=== PATIENT | female | born 2000 | race Caucasian/White ===

== ENCOUNTER 2021-05-26 07:54 | Day surgery (SDC) | payer OTHER ==
[2021-05-26] MEDS ORDERED: Lactated Ringers 1,000 ML IV SCH (08:30)
[2021-05-26] MEDS ORDERED: Xylocaine-Mpf 2% 5 Ml Vial ONE (09:27)
[2021-05-26] MEDS ORDERED: DIPRIVAN 200 MG/20 ML IV ONE ×4 (09:27→11:31)
[2021-05-26] MEDS ORDERED: Zofran 4 MG/2 ML VIAL ONE (09:27)
[2021-05-26] MEDS ORDERED: SUBLIMAZE 100 MCG/2 ML ONE (09:28)
[2021-05-26] MEDS ORDERED: XYLOCAINE 1%/Epi 1:100000 MDV 20 ML ONE (09:57)
[2021-05-26] MEDS ORDERED: XYLOCAINE 1% HCL 20 ML MDV ONE (09:57)
[2021-05-26] MEDS ORDERED: Versed 2 MG/2 ML Injection ONE (10:11)
[2021-05-26] MEDS ORDERED: Versed 2 MG/2 ML Injection IV ONE (10:16)
[2021-05-26 12:35] VITALS: BP 122/75; PULSE 88; O2SAT 95
--- NOTE | 2021-05-26 15:22 | OP ---
SURGERY DATE/TIME: 05/26/2021 1016 PREOPERATIVE DIAGNOSIS: Lipoma right mid posterior chest. POSTOPERATIVE DIAGNOSIS: Lipoma right mid posterior chest, see final path report. PROCEDURE: Excision of lipoma right mid posterior chest. SURGEON: Asa Pittman M.D. ANESTHESIA: Monitored anesthesia care - Mark Melara CRNA. ESTIMATED BLOOD LOSS: Less than 1 cc. INDICATIONS: This is a 20-year-old white female who came to see me at the request of Vielka Flores NP, because of a mass on the patient's right mid posterior chest which has been present for about a year from her initial consultation of 02/04/2021, which has increased in size and with pain especially with prolonged use of her upper extremities. The patient denies any history of trauma where the mass is located. Examination on her initial office visit revealed that the patient has an elevated subcutaneous tissue mass located in the right mid posterior chest just to the right of the midline, not attached to skin or to underlying structures and it is moveable and not tender to palpation. It measures 3 cm in diameter. Treatment plan was then discussed with the patient in the presence of her Roberto isabel which will be to obtain a CT scan of the mass in order help with diagnosis and extent of the mass. The patient then underwent a CT of the chest performed at [facility] on 02/08/[address] scan results of the mass in the right mid posterior chest showed no focal lesion of concern in the posterior back where the mass was located. In view of these findings, ultrasound of the mass in the patient's right mid posterior chest was then obtained in the same hospital on 02/23/2021 and result showed that the patient's palpable mass mentioned is most consistent with a lipoma which measures 2.9 x 2.9 x 0.8 cm. The patient was seen in my office on 02/25/[address] scan and ultrasound findings of the mass in the right mid posterior chest was discussed with the patient in the presence of her Roberto isabel. However, during her office visit the patient stated that in last six months she was having shoulder pain and weakness in both upper extremities which is worse in the last week. Because of this, she was then advised to see her nurse practitioner, Vielka Flores, for evaluation and management of her upper extremity complaint. The patient was seen by Vielka Flores NP and MRI of the patient's cervical spine was then performed in the same hospital 04/12/2021. The MRI showed normal exam. The patient was then cleared for her surgery by Vielka Flores NP. The patient was then seen in my office on 05/13/2021 and she states that the weakness in both upper extremities is now gone but she still has on and off pain in between her shoulder blades. Examination at that time revealed that the patient still has subcutaneous tissue mass on her right mid posterior chest which is compatible with a lipoma and it measures 3 cm in diameter and it is not attached to the skin or underlying structures and is moveable and not tender on palpation. The area where the patient states she is tender is superior and medial to where the lipoma is located. Treatment plan was then discussed with the patient and the patient states that she would like to proceed with her surgery which is to excise the lipoma on her right mid posterior chest. The patient's surgery was discussed with her and she agreed to have her surgery performed at [facility]. The patient's surgery was then scheduled for today, 05/26/2021 at 1000 hours under monitored anesthesia care. The patient had signed her informed consent for the procedure which includes the risks and complication including infection, bleeding, poor scar, possible recurrence, injury to normal structures and need for further surgery. Because of the COVID-19 pandemic the patient was informed that she could catch COVID-19 during the course of her treatment. The other option is perform the surgery at a later date once the pandemic is over. However, the patient decided to proceed with her surgery. She was also informed that Vielka Flores NP has cleared her for her surgery. The patient's preoperative and postoperative care were discussed with her and again she was given a brochure on how to prevent deep vein thrombosis after surgery which she was advised to read. She was again informed that most important thing after surgery is for the patient to ambulate early with the help of family member to prevent deep vein thrombosis from occurring. The patient was also informed that despite excision of the mass which to me is a lipoma that the pain in her back may still persist, then further evaluation and management will be as per medical provider Vielka Flores. In regards to pain control, the patient agreed to take Tylenol 5 grains 1 to 2 tablets every 4 hours as needed for pain. Regarding prophylactic antibiotic was also discussed and it was agreed not to give her any prophylactic antibiotic. The patient states that she understands the procedure and the risks and complications, preoperative and postoperative care and she has no further questions and she would like to proceed with the surgery as scheduled. DESCRIPTION OF PROCEDURE AND FINDINGS: While the patient was in the outpatient department at [facility], the patient states that there has been no change with her medical condition. Examination today showed that the subcutaneous tissue mass located in the patient's right mid posterior chest is still present. The subcutaneous tissue mass was then marked and the excision was then outlined in an oblique manner on top of the mass. This was pointed out to the patient during the marking and the patient stated that the marked area is the area where the mass is located and she confirmed this. After the skin marking was made and the patient was then taken into the operating room and placed in a left lateral decubitus position. A time out was then obtained and since there were no issues found then procedure was then performed as scheduled. After the patient was given a satisfactory IV sedation then local infiltration anesthesia was injected at the site of excision after this was wiped with alcohol and total anesthetic used was 3.5 cc. The operative site was then prepped with ChloraPrep and draped in the usual sterile fashion. After ten minutes after the local anesthetic was given then the incision was then made as marked down to subcutaneous tissue and then skin flaps were then elevated and the mass was then slowly and carefully dissected and it is compatible with a lipoma with intervening fibrous septa. The mass was then dissected and excised. It was noted to be sitting on top of the muscle fascia. The overlying skin and the lipoma was then excised and the size of the lipoma measured 3.2 x 2.8 x 1.2 cm. The overlying skin and the lipoma that was excised was then sent for pathology for histopathologic diagnosis. After the lipoma was excised under direct vision and palpation, no other masses were noted where the previous lipoma was located. Complete hemostasis was then obtained using bipolar cautery and then the operative site was then irrigated thoroughly with normal saline solution. Layered closure was then performed at this point. Dermis and subcutaneous tissue was then closed using interrupted buried sutures of 3-0 Monocryl. The epidermis and dermis was then closed using a combination of interrupted and vertical mattress sutures of 4-0 Nylon. Final length of the skin closure measured 2.7 cm. The skin closure was further augmented using Mastisol and Steri-Strips followed by a folded 4x4 dressing secured by Tegaderm as a pressure dressing. Prior to application of the dressing, for postoperative pain management a ring block of 1% Xylocaine with epinephrine was injected around the incision and total anesthetic used is 3 cc. After the block was performed then dressing applied as previously describe. The patient tolerated the procedure well and was then taken into the outpatient department for discharge home. Above operative findings and the patients postoperative care was then discussed with the patient and with the patient's father, Myles. The patient and father were informed that there is a depression at the area of excision because lipoma had been excised which resulted in the depression and they stated that they understand. The patient was also advised to follow the postoperative deep vein thrombosis and pulmonary embolism instructions that were given to her in the office which includes early ambulation. The patient was also advised to avoid any heavy physical activity until her next office visit. The patient was also given a prescription for Tylenol #3 one to two tablets every 4 hours as needed for pain. For less severe pain the patient was also advised to take regular Tylenol 5 grains 1-2 tablets every 4 hours as needed for pain and she states that she understands. The father and patient were both informed to observe the incision for any signs of infection which include increasing pain, swelling, redness or drainage. If any of this happens then she needs to contact me. The patient is to be seen back in my office on 06/03/2021 for follow up or sooner if she has any problems.
== END 2021-05-26 12:35 | disposition home or self-care (01) ==
LOC: EDSEX 07:54 → SDC 07:54
PROVIDERS: ATTEND Surgery Plastic and Reconstructive Surgery
DX: D17.1 Benign lipomatous neoplasm of skin and subcutaneous tissue of trunk (principal)
CPT/HCPCS: 84703; 88304; J2250; J2405; J2704; J3010